=== PATIENT | male | born 1950 | race Two or more races ===

== ENCOUNTER 2022-04-16 13:46 | Outpatient (CLI) | payer OTHER ==
[~2022-04-16 13:46] MED LIST: AVAPRO150 MG PO; Avapro PO; CIPRO750 MG; HUMALOG MI100 UNIT/1 SUBCUTANEO; HumaLOG 100 UNIT/1 ML (3ML) SUBCUTANEO; LANTUS SOLOSTAR3 ML SUBCUTANEO; LIPITOR20 MG PO; Lantus 1000 U/10 ML SUBCUTANEO; METFORMIN HCL500 M2 PO; SYNTHROID300 MCG PO; SYNTHROID50 MCG PO; Surfak PO; Synthroid PO
== END 2022-04-16 13:47 | disposition home or self-care (01) ==
LOC: LAB 13:46
PROVIDERS: ATTEND Urology
DX: R97.20 Elevated prostate specific antigen [PSA] (principal)

== ENCOUNTER 2022-05-08 07:37 | Outpatient (CLI) | payer OTHER | END 2022-05-08 07:46 | disposition home or self-care (01) | LOC: SONOGRAMA 07:37 | PROVIDERS: ATTEND Urology | DX: R97.20 Elevated prostate specific antigen [PSA] (principal) ==